=== PATIENT | female | born 1965 | race Caucasian/White ===

== ENCOUNTER 2020-09-17 06:54 | Outpatient (NON) | payer OTHER, SELFPAY ==
[2020-09-18 00:44] LABS: SARS-CoV-2 RNA PCR Negative
== END 2020-09-17 06:55 ==
LOC: ANHCOVIDDT 07:15
PROVIDERS: PCP Family Medicine; Visit Provider Physician Assistant Medical
DX: Z20.828 Contact with and (suspected) exposure to other viral communicable diseases (principal)
CPT/HCPCS: 87635; C9803; U0003

== ENCOUNTER 2023-01-16 09:00 | Outpatient (NON) | payer OTHER, SELFPAY | END 2023-01-16 09:01 | disposition home or self-care (01) | LOC: ANHLAB 01-17 09:02 | PROVIDERS: PCP Family Medicine; Visit Provider Internal Medicine Gastroenterology | DX: D12.5 Benign neoplasm of sigmoid colon (principal); Z80.0 Family history of malignant neoplasm of digestive organs | CPT/HCPCS: 88305 ==

== ENCOUNTER 2023-01-16 09:27 | Day surgery (SDC) | payer OTHER, SELFPAY ==
[2022-12-16 11:07] VITALS: BMI 23.3
[2023-01-10 10:47] VITALS: BMI 22.7
[2023-01-16 10:00] VITALS: BP 113/82; PULSE 72; RESP 16; TEMP 36.7; O2SAT 100
--- NOTE | 2023-01-16 10:27 | WPDANESEPPF ---
Anes - Initial Pre Proc Eval Procedure: Operation Date: 01/16/23 11:00 Proposed Procedures p Diagnostic Colonoscopy - Sincere Marcelino MD Date/Time: 01/16/23 10:27 Surgeon: Sincere Marcelino MD Pre Op Diagnosis: Family History of Colon Cancer Patient Data Age: 57 Gender: F Height: 1.68 m Weight: 64.5 kg Allergies Allergy/AdvReac Type Severity Reaction Status Date / Time Penicillins Allergy Unknown Hives Verified 01/16/23 09:59 Home Medications Medication Instructions Recorded Confirmed Type mecobalamin (vitamin B12) 1,000 1,000 mcg PO DAILY 08/06/20 01/16/23 History mcg chewable tablet ergocalciferol (vitamin D2) 1,250 See Rx Instructions .Route 12/29/21 01/16/23 Rx mcg (50,000 unit) capsule .COMPLEX #3 caps valacyclovir 1 gram tablet 2,000 mg PO Q12H #12 tabs 02/16/22 01/16/23 Rx chlorthalidone 25 mg tablet See Rx Instructions .Route 03/25/22 01/16/23 Rx .COMPLEX #90 tabs sodium,potassium,mag sulfates 17.5 See Rx Instructions PO .COMPLEX 12/16/22 01/16/23 Rx gram-3.13 gram-1.6 gram oral soln #354 mL (Suprep Bowel Prep Kit) Patient hx anesthesia problems: none Family hx anesthesia problems: none Results Review: All pre-operative results and documents have been reviewed as part of the pre-operative evaluation. FORMERLY [facility], [facility] Past Medical History Medical History Hypercalcemia Hyperparathyroidism, unspecified Sensory problems with limbs Surgical History Surgical History H/O parathyroidectomy (07/08/19) History of colonoscopy 2017/internal hemmies/ repeat in 5 years Hx of breast biopsy x 2 Family History Family History Mother Hypertension Carcinoma of colon Father Family history of arthritis Other Family history of kidney disease Social History Social History (Updated 12/09/22 @ 11:29 by Katya Levin CMA) Smoking status: Never smoker Alcohol intake: current Drinks per week: 3 Alcohol use details: SOCIALLY Substance use: never Substance use type: does not use Lack of Transportation: No Lack of Food: Never True Current Housing: I Have Housing Concerned About Future Housing: No Difficulty Paying Gas/Electric Bills: No Difficulty Paying for Meds: No Currently Unemployed: No Education: Bachelor's Degree Difficulty w/ Childcare or Family Care: No Living arrangements: with family Spiritual care concerns: No Anes - Eval Final PreProcedure Day of Procedure 01/16/23 10:27 Patient weight: normal Heart: regular rate and rhythm Lungs: clear to auscultation and normal air movement Airway: Mallampati scale class II Neurological: alert and oriented Last oral intake: >/= 8 hours ASA classification: II Emergent: no Anesthetic plan: proceed Anesthesia type and monitoring: general GIVS Results Review: All pre-operative results and documents have been reviewed as part of the pre-operative evaluation. Informed Consent: The patient's anesthetic plan and its attendant risks and benefits were discussed with the patient/family/POA. Questions were solicited and answers provided to the satisfaction of the patient/family/POA.
[2023-01-16] MEDS: LACTATED RINGERS 1,000 ML 150 ML IV CONT (10:34)
--- NOTE | 2023-01-16 10:38 | PM.HPGS ---
History of Present Illness History of Present Illness Consent: Risks, benefits, and alternatives have been discussed and questions answered. Patient agrees to proceed with procedure. Chief complaint: Family History of Colon Cancer Narrative: Deja Traore is a 57 year old female Presents for colonoscopy. Patient's current weight appetite and bowel movements are normal. Patient denies abdominal pain. She has had no bleeding. Family history is significant that her mother had colon cancer. Review of Systems Review of Systems: Review of systems noncontributory. [facility] Past Medical History Medical History Hypercalcemia Hyperparathyroidism, unspecified Sensory problems with limbs Surgical History Surgical History H/O parathyroidectomy (07/08/19) History of colonoscopy 2017/internal hemmies/ repeat in 5 years Hx of breast biopsy x 2 Family History Family History Mother Hypertension Carcinoma of colon Father Family history of arthritis Other Family history of kidney disease Social History Social History (Updated 12/09/22 @ 11:29 by Katya Levin [facility]) Smoking status: Never smoker Alcohol intake: current Drinks per week: 3 Alcohol use details: SOCIALLY Substance use: never Substance use type: does not use Lack of Transportation: No Lack of Food: Never True Current Housing: I Have Housing Concerned About Future Housing: No Difficulty Paying Gas/Electric Bills: No Difficulty Paying for Meds: No Currently Unemployed: No Education: Bachelor's Degree Difficulty w/ Childcare or Family Care: No Living arrangements: with family Spiritual care concerns: No Meds Home Medications and Allergies Home Medications Medication Instructions Recorded Confirmed Type mecobalamin (vitamin B12) 1,000 1,000 mcg PO DAILY 08/06/20 01/16/23 History mcg chewable tablet ergocalciferol (vitamin D2) 1,250 See Rx Instructions .Route 12/29/21 01/16/23 Rx mcg (50,000 unit) capsule .COMPLEX #3 caps valacyclovir 1 gram tablet 2,000 mg PO Q12H #12 tabs 02/16/22 01/16/23 Rx chlorthalidone 25 mg tablet See Rx Instructions .Route 03/25/22 01/16/23 Rx .COMPLEX #90 tabs sodium,potassium,mag sulfates 17.5 See Rx Instructions PO .COMPLEX 12/16/22 01/16/23 Rx gram-3.13 gram-1.6 gram oral soln #354 mL (Suprep Bowel Prep Kit) Allergies Allergy/AdvReac Type Severity Reaction Status Date / Time Penicillins Allergy Unknown Hives Verified 01/16/23 09:59 Vital Signs Vital Signs - 24 hr 01/16/23 10:00 Temperature 98.0 F Pulse Rate 72 Respiratory Rate 16 Blood Pressure 113/82 Pulse Oximetry 100 Oxygen Delivery Room Air Exam Narrative: Physical exam reveals patient to be alert. Vital signs stable. HEENT exam is unremarkable. Patient is anicteric. Lungs are clear to auscultation and percussion. Heart is without murmur or extra sounds. Abdomen bowel sounds are present soft nontender with no organomegaly. Digital external rectal exam is normal. Assessment and Plan Assessment and plan (1) FH: colon cancer: Code(s): Z80.0 - Family history of malignant neoplasm of digestive organs Status: Acute Assessment and Plan: Patient's mother had colon cancer. Plan for surveillance colonoscopy now and consider this at 5 year intervals in the future.
[2023-01-16 12:10] VITALS: BP 97/72; PULSE 74; RESP 14; O2SAT 99
[2023-01-16 12:20] VITALS: BP 105/67; PULSE 60; RESP 16; O2SAT 100
[2023-01-16 12:30] VITALS: BP 115/72; PULSE 60; RESP 16; O2SAT 100
--- NOTE | 2023-01-16 13:39 | WPDANESPN ---
Anes - Prog Note Post-Op Date/Time: 01/16/23 13:39 Cardiovascular status: normal Respiratory status: normal Airway patency: baseline Mental status: baseline Post-Op hydration status: normal Vital Signs: Last Vital Signs Temp 36.7 C 01/16/23 10:00 Pulse 60 01/16/23 12:30 Resp 16 01/16/23 12:30 BP 115/72 01/16/23 12:30 Pulse Ox 100 01/16/23 12:30 O2 Del Method Room Air 01/16/23 12:30 Pain Score (VAS): 0 I/O: Intake & Output 01/15/23 01/16/23 01/16/23 23:59 07:59 15:59 Intake Total 100 Balance 100 Post-procedural complaints: none Patient Feedback: Patient satisfied with anesthetic care.
== END 2023-01-16 12:45 | disposition home or self-care (01) ==
PROVIDERS: PCP Family Medicine; Visit Provider Internal Medicine Gastroenterology
PROC: 0DJD8ZZ Inspection of Lower Intestinal Tract, Via Natural or Artificial Opening Endoscopic (ICD-10-PCS; CPT 45378; principal; 2023-01-16 11:00)
DX: Z80.0 Family history of malignant neoplasm of digestive organs (principal)
CPT/HCPCS: 45385

== ENCOUNTER 2023-03-02 10:25 | Outpatient (CLI) | payer OTHER, SELFPAY ==
[2023-03-02 20:30] LABS: Kit Draw Collected
== END 2023-03-02 10:26 | disposition home or self-care (01) ==
LOC: ANHGOSHLAB 10:26
PROVIDERS: PCP Family Medicine; Visit Provider Family Medicine
DX: M85.80 Other specified disorders of bone density and structure, unspecified site (principal); I10 Essential (primary) hypertension
CPT/HCPCS: 36415

== ENCOUNTER 2023-03-24 10:35 | Outpatient (CLI) | payer OTHER, SELFPAY ==
[2023-03-24 14:35] LABS: Anion Gap 4 mmol/L (8-16); Blood Urea Nitrogen 21 mg/dL (7-17); Calcium 9.4 mg/dL (8.4-10.2); Carbon Dioxide 37 mmol/L (22-30); Chloride 96 mmol/L (98-107); Estimated Glomerular Filt Rate > 60; Glucose 97 mg/dL (65-110); Potassium 3.6 mmol/L (3.4-5.0); Sodium 137 mmol/L (137-145)
== END 2023-03-24 10:36 | disposition home or self-care (01) ==
LOC: ANHGOSHLAB 10:36
PROVIDERS: PCP Family Medicine; Visit Provider Family Medicine
DX: E87.6 Hypokalemia (principal)
CPT/HCPCS: 36415; 80048

== ENCOUNTER 2025-09-18 06:59 | Outpatient (CLI) | payer OTHER, SELFPAY ==
--- OUTSIDE RECORDS SUMMARY | 2025-09-18 07:03 | XMS_ITS | Encounter Summary ---
Author Organization [facility] Address 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
--- OUTSIDE RECORDS SUMMARY | 2025-09-18 07:03 | XMS_ITS | Clinical Summary ---
Author Organization [facility] Address [address] [place] [address] Phone Care Team Providers Care Hand Button Splitter Name Role Phone Abigail Bunn MD Primary Care Provider Allergies Active Allergy Reactions Criticality Noted Date Comments Penicillins Hives High 11/18/2009 Medications valACYclovir (VALTREX) 1 gram tablet 01/29/2015 Active cyanocobalamin 1,000 mcg Tablet Take 1,000 mcg by mouth daily. Active chlorthalidone (HYGROTON) 25 mg tablet 11/04/2019 Active triamcinolone acetonide (KENALOG) 0.025 % Cream APPLY A SMALL AMOUNT TO AFFECTED AREAS TWICE DAILY FOR 5 DAYS ON AND 2 DAYS OFF. REPEAT NEEDED. 05/12/2022 Active ergocalciferol (VITAMIN D2) 50,000 unit capsule 07/02/2022 Active Active Problems Patient Care Coordination No te Formatting of this note migh t be different from the original. Primary Care: Abigail Bunn MD Referring Provider: Kong Gutierrez MD [address] [place] [address] Other: Problem Noted Date Diagnosed Date Dense breast tissue on mammogram 12/03/2020 Fibrocystic breast changes of both breasts 05/29 Mastodynia 05/29/2020 Benign breast cyst in female, left 11/14/2019 Menorrhagia with regular cycle 07/03/2017 Abnormal mammogram, unspecified 01/27/2014 Unspecified essential hypertension 12/28/2010 Headache(784.0) 12/28/2010 Fibroadenoma of left breast 12/25/2009 Overview (12/25/2009): Fibroadenoma left breast, core biopsy 09-14-2005 Encounters Date Type Department Care Team Description 09/02/2025 External Device Data ST[facility] ABSTRACTION Provider, Abstract 07/01/2025 External Device Data [facility] ABSTRACTION Provider, Abstract from Last 3 Months Family History Medical History Relation Name Comments Lung Cancer Maternal Grandfather Other Maternal Grandmother diabete s Pancreatic Cancer Maternal Uncle Colon Cancer Mother Melanoma Mother Breast Cancer Neg Hx Ovarian Cancer Neg Hx Relation Name Status Comments Maternal Grandfather Maternal Grandmother Maternal Uncle Mother Social History Tobacco Use Types Packs/Day Years Used Date Smoking Tobacco: Never Smokeless Tobacco: Never Tobacco Cessation:Counseling Given: Not Answered Alcohol Use Standard Drinks/Week Comments Yes 0 (1 standard drink = 0.6 oz pur e alcohol) MODERATE Comments No Sex and Gender Information Value Date Recorded Sex Assigned at Not on file 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 Gender Identity Not on file Sexual Orientation Not on file Occupation Industry Job Start Date Job End Date Not on file Not on file Not on file Not on file Last Filed Vital Signs Vital Sign Reading Time Taken Comments Blood Pressure 124/76 07/29/2024 9:33 AM CDT Pulse 74 11/14/2019 8:50 AM RESIDENTIAL INTERIOR DESIGNER Temperature 36.4 C (97.6 F) 07/29/2024 9:33 AM CDT Respiratory Rate - - Oxygen Saturation - - Inhaled Oxygen Concentration - - Weight 69.3 kg (152 lb 12.8 oz) 07/29/2024 9:33 AM CDT Height 167.6 cm (5' 6) 07/29/2024 9:33 AM CDT Body Mass Index 24.66 07/29/2024 9:33 AM CDT Plan of Treatment Health Maintenance Due Date Last Done Comments DTAP/TDAP/TD VACCINES (1 - Tdap) 1985 HEPATITIS B VACCINES (1 of 3 - 19+ 3-dose series) 1985 COLORECTAL SCREENING 2011 Colorectal Cancer Screening 2011 FIT-DNA Q 3 years 2011 FIT/FOBT Q 1 year 2011 Flex Sig/CT Colonography Q 5 years 2011 ZOSTER VACCINE (1 of 2) 2016 INFLUENZA VACCINE (#1) 2025 08/19/2021 CERVICAL CANCER SCREENING 07/29/2025 PAP SMEAR 07/29/2025 07/29/2024, 04/1 11/2021, 07/03/2017, Additional history exists BREAST CANCER SCREENING 01/06/2026 01/07/20 25, 01/02/2024, 12/14/2022, Additional history exists HPV/Cotest (21-29) 07/29/2029 07/29/2024, 0 02/14/2022, 07/03/2017, Additional history exists HPV/Cotest (30-65) 07/29/2029 07/29/2024, 0 02/14/2022, 07/03/2017, Additional history exists Procedures Procedure Name Priority Date/Time Associated Diagnosis Comments MAMMO 3D MORENITA SCREEN BILAT W OR WO CAD Routine 01/06/2025 8:52 AM RESIDENTIAL INTERIOR DESIGNER Dense breasts Well woman exam with routine gynecological exam CERV/VAG CYTO AGE BASED SCREEN PAP Routine 07/29/2024 10:04 AM CDT Well woman exam with routine gynecological exam Screening for HPV (human papillomavirus) Screening examination for venereal disease Encounter for Papanicolaou smear for cervical cancer screening from Last 3 Months or Most Recently Relevant to Health Maintenance Results * MAMMO 3D MORENITA SCREEN BILAT W OR WO CAD (01/06/2025 8:52 AM RESIDENTIAL INTERIOR DESIGNER) Anatomical Region Laterality Modality Breast Bilateral Mammography 01/06/2025 8:52 AM RESIDENTIAL INTERIOR DESIGNER Impressions 01/06/2025 9:03 AM RESIDENTIAL INTERIOR DESIGNER IMPRESSION: No suspicious findings to suggest malignancy in either breast. Annual mammography is recommended. OVERALL FINAL ASSESSMENT: BI-RADS CATEGORY 1: Negative DICTATION LOCATION: [facility] 01/06/2025 9:03 AM RESIDENTIAL INTERIOR DESIGNER BILATERAL SCREENING DIGITAL MAMMOGRAM WITH 3D TOMOSYNTHESIS AND CAD DATE: 01/06/2025 8:52 AM HISTORY: Routine screening. TECHNIQUE: Full-field digital craniocaudal and mediolateral oblique projections of both breasts were obtained. Low-dose full-field digital breast tomosynthesis examination was performed with 2D and 3D acquisitions. Examination is read in conjunction with computer aided detection. COMPARISON: 01/02/2024 and older BREAST COMPOSITION: The breasts are heterogeneously dense, which may obscure small masses. FINDINGS: No suspicious mass, suspicious microcalcifications, or architectural distortion is identified in either breast. Computer aided detection was used in the interpretation of this examination. us Anay Barlow MOTORCYCLE TECHNICIAN MAMMO ORDERABLES Final Resu lt * CERV/VAG CYTO AGE BASED SCREEN PAP (07/29/2024 10:04 AM CDT) COMMENT (PAP): [facility] [place] Comment: This order for age-based cervical cancer and STI screening follows ACOG guidelines(PB 168, 140, IPJ062). See individual assays for performing site location. CLINICAL INFORMATION [facility] [place] Comment:None given LAST MENSTRUAL PERIOD [facility] [place] Comment:NONE GIVEN PREV PAP: [facility] [place] Comment:NONE GIVEN PREV BX: [facility] [place] Comment:NONE GIVEN SOURCE [facility] [place] Comment:Endocervix ADEQUACY: [facility] [place] Comment: Satisfactory for evaluation. Endocervical/transformation zone component present. Age and/or menstrual status not provided PAP INTERP [facility] [place] Comment: Cytology Results: Negative for intraepithelial lesion or malignancy. COMMENT (PAP TEST) [facility] [place] Comment: This Pap test has been evaluated with computer assisted technology. ASSOCIATE ACCOUNTANT: Margot est Rashmi Early Comment: COOL, CT(ASCP) CT Screening location: [facility] [place] [address] [facility] Comment: EXPLANATORY NOTE: The Pap is a screening test for cervical cancer. It is not a diagnostic test and is subject to false negative and false positive results. It is most reliable when a satisfactory sample, regularly obtained, is submitted with relevant clinical findings and history, and when the Pap result is evaluated along with historic and current clinical information. HPV E6/E7 Not Detected Not Detected [facility] [place] Comment: Methodology: Ancillary Services Manager-Mediated Amplification This assay detects E6/E7 viral messenger RNA (mRNA) from 14 high-risk HPV types (16,18,31,33,35,39,45,51,52,56,58,59,66,68). Cervical sources are required for HPV testing. If a vaginal source from a patient who has had a total hysterectomy with removal of cervix was submitted, please contact the testing laboratory for alternative testing options. For additional information, please refer to http://education.Jigsaw24/faq/TRM930a5 (This link if provided for information/ educational purposes only.) Test Performed at: [facility] [address] [facility] [place] [address] Michael COTE Genital SWAB OF ENDOCERVIX / Unknown 07/29/2024 10:04 AM CDT 07/30/2024 12:46 AM CDT us Anay Barlow NP PATHOLOGY/CYTOLOGY ORDERABL ES Final Result [facility] [phone] [facility] [address] [facility] [place] [address] from Last 3 Months or Most Recently Relevant to Health Maintenance Insurance [place] [id number] [facility] [id number] Care Teams Hand Button Splitter Relationship Specialty Start Date End Date Abigail Bunn MD PCP - General 11/13/08
--- OUTSIDE RECORDS SUMMARY | 2025-09-18 07:03 | XMS_ITS | Encounter Summary ---
Author Organization [facility] Address 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
--- OUTSIDE RECORDS SUMMARY | 2025-09-18 07:03 | XMS_ITS | Clinical Summary ---
Author Organization [facility] [address] [place] Address [address] [place] [address] Care Team Providers Care Seismology Technical Officer Name Role Phone Jesse Bunn MD Primary Care Provider [phone] Allergies Active Allergy Reactions Criticality Noted Date Comments Penicillins Medications aspirin 81 mg enteric coated tablet Take 81 mg by mouth daily Active ergocalciferol (DRISDOL) 8,000 unit/mL drops Take 50,000 Int'l Units by mouth every 4 (four) weeks Active chlorthalidone 25 mg tablet Take 25 mg by mouth daily 03/25/2022 Active cyanocobalamin (Vitamin B-12) 1,000 mcg tablet Take 1,000 mcg by mouth daily Active valACYclovir (VALTREX) 1 gram tablet 02/16/2022 Active Active Problems Problem Noted Date Diagnosed Date Parathyroid neoplasm 01/08/2015 Hyperparathyroidism 12/16/2014 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 2-3 times a week 05/01/2022 Q2: How many drinks containi ng alcohol do you have on a typical day when you are drinking? 1 or 2 05/01/2022 Q3: How often do you have si x or more drinks on one occasion? Never 05/01/2022 Comments Unknown Sex and Gender Information Value Date Recorded Sex Assigned at Not on file Legal Sex Female 1:55 AM AUDIOMETRIST Gender Identity Not on file Sexual Orientation Not on file Last Filed Vital Signs Vital Sign Reading Time Taken Comments Blood Pressure 144/86 05/01/2022 10:00 AM CDT Pulse 70 05/01/2022 10:00 AM CDT Temperature 36.8 C (98.3 F) 05/01/2022 10:00 AM CDT Respiratory Rate 16 05/01/2022 10:0 0 AM CDT Oxygen Saturation 98% 05/01/2022 10: 00 AM CDT Inhaled Oxygen Concentration - - Weight 66.2 kg (145 lb 14.4 oz) 022 10:00 AM CDT Height 167.6 cm (5' 6) 05/01/2022 10:0 0 AM CDT Body Mass Index 23.55 05/01/2022 10:00 AM CDT Plan of Treatment Not on file Insurance [address] [place] [address] Care Teams Seismology Technical Officer Relationship Specialty Start Date End Date Jesse Bunn MD PCP - General 11/28/14
[2025-09-18 08:53] LABS: Hematocrit 40.4 % (37.0-47.0); Hemoglobin 13.4 g/dL (12.0-15.0); Immature Granulocyte Percent A 0.4 % (0-0.5); Lymphocytes Absolute Auto 2.56 K/mm3 (0.9-3.2); Mean Corpuscular HGB Conc 33.2 g/dl (32-36); Mean Corpuscular Hemoglobin 29.6 pg (26-34); Mean Corpuscular Volume 89.2 fl (80-100); Nucleated Red Blood Cells Absolute Auto 0.000 K/mm3 (0.0-0.012); Nucleated Red Blood Cells Perc 0.0 % (0.0-0.2); Platelet Count Result 279 k/mm3 (150-375); Red Blood Count 4.53 M/mm3 (4.2-5.4); White Blood Count 5.5 K/mm3 (4.5-10.0)
[2025-09-18 09:14] LABS: Alanine Aminotransferase 16 U/L (6-35); Albumin Level 4.5 g/dL (3.5-5.1); Alkaline Phosphatase 45 U/L (38-126); Anion Gap 7 mmol/L (4-12); Aspartate Amino Transferase 25 U/L (14-36); Bilirubin,Total 0.9 mg/dL (0.2-1.3); Blood Urea Nitrogen 18 mg/dL (7-17); Calcium 9.5 mg/dL (8.4-10.2); Carbon Dioxide 32 mmol/L (22-30); Chloride 99 mmol/L (98-107); Cholesterol 263 mg/dL (0-200); Estimated Glomerular Filt Rate 53; Glucose 101 mg/dL (65-110); HDL Direct 69 mg/dL; Potassium 3.4 mmol/L (3.4-5.0); Sodium 138 mmol/L (137-145); Total Protein 7.2 g/dL (6.3-8.2); Triglycerides 103 mg/dL (<150)
== END 2025-09-18 07:00 | disposition home or self-care (01) ==
LOC: ANHLAB 07:01
PROVIDERS: PCP Family Medicine; Visit Provider Family Medicine
DX: Z00.00 Encounter for general adult medical examination without abnormal findings (principal); I10 Essential (primary) hypertension; M85.80 Other specified disorders of bone density and structure, unspecified site; Z78.0 Asymptomatic menopausal state
CPT/HCPCS: 36415; 80053; 80061; 82306; 85025